=== PATIENT | female | born 1995 | race Caucasian/White ===

== ENCOUNTER 2017-08-19 21:22 | Emergency (ER) | payer BC ==
[~2017-08-19] VITALS: Ht 177.8 cm; Wt 70.0 kg
[2017-08-19 21:27] VITALS: BP 139/74; PULSE 68; RESP 15; TEMP 99.4; O2SAT 100
--- NOTE | 2017-08-19 22:58 | RADRPT ---
EXAM DATE/TIME: 08/19/2017 22:32 [place] COMPARISON: No previous studies available for comparison. INDICATIONS : Pain from volleyball injury. MEDICAL HISTORY : None. SURGICAL HISTORY : None. ENCOUNTER: Initial ACUITY: 1 day PAIN SCORE: 7/10 LOCATION: Right knee. FINDINGS: Four view examination of the right knee demonstrates no evidence of fracture or dislocation. A tiny j oint effusion. Bony mineralization is normal. The articular surfaces are intact. The suprapatellar soft tissues have a normal configuration. CONCLUSION: 1. A tiny joint effusion. Otherwise, unremarkable exam. Yovany Farrell Jr., MD on August 19, 2017 at 22:56 Board Certified Radiologist. This report was verified electronically.
[2017-08-19] MEDS ORDERED: ACETAMINOPHEN/HYDROcodone 325 MG/5 MG TAB PO ONE (23:00)
[2017-08-19] MEDS ORDERED: ONDANSETRON ODT 4 MG TAB PO ONE (23:00)
[2017-08-19] MEDS ORDERED: IBUP-232 PO (23:10)
--- NOTE | 2017-08-19 23:11 | PD ---
HPI Chief Complaint: Injury Time Seen by Provider: 22:18 Travel History International Travel<30 days: No Contact w/Intl Traveler<30days: No Traveled to known affect area: No History of Present Illness HPI 22 yo RF c/o R knee pain with varus injury while playing volleyball causing sudden onset severe pain. immobilization improved pain. motrin helped minimally. timing constant. no additional injury to report. PFSH Past Medical History Medical History: Denies Significant Hx ?: Not LMP: 08/03/17 Past Surgical History Surgical History: No Previous Surgery Oral Surgery: Yes Social History Alcohol Use: Yes (ONCE A WEEK) Tobacco Use: No Substance Use: No Allergies-Medications (Allergen,Severity, Reaction): Coded Allergies: adhesive (Verified Allergy, Severe, Hives, 08/19/17) Reported Meds & Prescriptions Reported Meds & Active Scripts Active Ibuprofen 600 Mg Tab 600 Mg PO Q8HR PRN Review of Systems Except as stated in HPI: all other systems reviewed are Neg Physical Exam Narrative GENERAL: 22 yo F, WNWD, NAD SKIN: Warm and dry. HEAD: Atraumatic. Normocephalic. EYES: Pupils equal and round. No scleral icterus. No injection or drainage. ENT: No nasal bleeding or discharge. Mucous membranes pink and moist. NECK: Trachea midline. No JVD. MSK: TTP patella. TTP fibular head. 2+ DP bilaterally. Data Data Last Documented VS Vital Signs Date Time Temp Pulse Resp B/P (MAP) Pulse Ox O2 Delivery O2 Flow Rate FiO2 08/19/17 23:29 08/19/17 21:27 99.4 68 15 100 Room Air VS reviewed Orders Orders Knee, Complete (4vws) (08/19/17 22:18) Ice/Cold Pack (08/19/17 22:18) Acetamin-Hydrocod 325-5 Mg ([place] 5-325 (08/19/17 23:00) Ondansetron Odt (Zofran Odt) (08/19/17 23:00) Crutches (08/19/17 ) MDM Medical Decision Making Medical Screen Exam Complete: Yes Emergency Medical Condition: Yes Differential Diagnosis fracture, contusion, internal derangement Narrative Course Last 24 hours Impressions Knee X-Ray 08/19/17 [id number] Signed Impressions: Service Date/Time: Saturday, August 19, 2017 22:32 - CONCLUSION: 1. A tiny joint effusion. Otherwise, unremarkable exam. Yovany Farrell Jr., MD ice immobilizer motrin f/u orthopedic surgeon in [facility] Diagnosis Primary Impression: Internal derangement of knee Qualified Codes: M23.91 - Unspecified internal derangement of right knee Referrals: Orthopaedic Surgeon call for appointment Additional Instructions: FOLLOW UP WITH ORTHOPEDIC SURGEON AT HOME. TAKE MOTRIN 600MG EVERY 6 HOURS NEEDED. USE CRUTCHES AND NOT WALK ON THE RIGHT LEG. Med/Other Pt SpecificInfo: Prescription(s) given Scripts Ibuprofen (Ibuprofen) 600 Mg Tab 600 MG PO Q8HR Y for PAIN SCALE 6 TO 10, #20 TAB 0 Refills Prov: Anuj Lara MD 08/19/17 Disposition: 01 DISCHARGE HOME Condition: Stable Anuj Lara MD Aug 19, 2017 23:11
== END 2017-08-19 23:29 | disposition home or self-care (01) ==
LOC: NEPK 21:22
DX: M23.91 Unspecified internal derangement of right knee (principal); Y93.68 Activity, volleyball (beach) (court)
CPT/HCPCS: 73564; 99283; E0113